=== PATIENT | male | born 1975 | race Caucasian/White ===

== ENCOUNTER 2016-09-15 18:02 | Emergency (ER) | payer OTHER ==
--- NOTE | 2016-09-15 18:57 | EDM.PDOC ---
ED HPI GENERAL MEDICAL PROBLEM - General Chief Complaint: Lower Extremity Injury/Pain Stated Complaint: SWOLLEN R ANKLE Time Seen by Provider: 09/15/16 18:11 Source of Information: Reports: Patient, RN Notes Reviewed - History of Present Illness INITIAL COMMENTS - FREE TEXT/NARRATIVE: 40-year-old male injured right ankle at work about an hour ago. He states he suffered an inversion injury. He felt a "pop". There is swelling of the outer aspect of his ankle and he does have pain with motion at the ankle and with weightbearing. States he has had prior injuries to the ankle. No other pain or injury from this incident Right Ankle Pain Score (Numeric/FACES): 2 - Related Data Allergies Allergy/AdvReac Type Severity Reaction Status Date / Time No Known Allergies Allergy Verified 09/15/16 18:12 Home Meds: Home Meds . [No Known Home Meds] 09/15/16 [History] Past Medical History - Past Health History Medical/Surgical History: Denies Medical/Surgical History Social & Family History - Tobacco Use Smoking Status *Q: Current Every Day Smoker Years of Tobacco use: 15 Packs/Tins Daily: 1 - Caffeine Use Caffeine Use: Reports: None - Recreational Drug Use Recreational Drug Use: No Review of Systems - Review of Systems Review Of Systems: See Below Constitutional: Reports: No Symptoms Mouth/Throat: Reports: No Symptoms Respiratory: Denies: Shortness of Breath Cardiovascular: Denies: Chest Pain GI/Abdominal: Denies: Abdominal Pain Musculoskeletal: Reports: Joint Pain (Right ankle) Skin: Reports: No Symptoms Neurological: Denies: Numbness, Tingling ED EXAM, GENERAL - Physical Exam Exam: See Below General Appearance: Alert, No Apparent Distress Head: Atraumatic Neck: Supple Respiratory/Chest: No Respiratory Distress Extremities: Joint Swelling (Lateral aspect of right ankle, non-tender medially , moderate tenderness lateral ankle, joint is stable, no visible deformity, foot and upper leg are both nontender) Course - Vital Signs Last Recorded V/S: Last Vital Signs Temp 98.3 F 09/15/16 18:08 Pulse 78 09/15/16 19:04 Resp 18 09/15/16 19:04 BP 119/87 09/15/16 19:04 Pulse Ox 98 09/15/16 19:04 - Orders/Labs/Meds Orders: Active Orders 24 hr Category Date Time Status Ankle Min 3V Rt [CR] Stat Exams 09/15/16 18:15 Taken Durable Medical Equipment for Discharge [DME for Oth 09/15/16 18:55 Ordered Discharge] [COMM] Stat - Re-Assessments/Exams Free Text/Narrative Re-Assessment/Exam: 09/15/16 19:09. X-rays of ankle show no fracture Departure - Departure Time of Disposition: 18:53 Disposition: Home, Self-Care 01 Condition: fair Clinical Impression: Ankle sprain Qualifiers: Encounter type: initial encounter Involved ligament of ankle: unspecified ligament Laterality: left Qualified Code(s): S93.402A - Sprain of unspecified ligament of left ankle, initial encounter - Discharge Information Instructions: Ankle Sprain, [id number] Referrals: PCP,None [Primary Care Provider] - Forms: ED Department Discharge Additional Instructions: Lico wrap left foot and ankle is much as possible, ice packs and elevation for swelling, Tylenol or ibuprofen as needed for discomfort, rest and elevate foot and ankle is much as possible, increase activity as tolerated, you are released back to work with no specific restrictions, followup clinic if not much better within 5-7 days as expected - My Orders Last 24 Hours: My Active Orders 09/15/16 18:15 Ankle Min 3V Rt [CR] Stat 09/15/16 18:55 Durable Medical Equipment for Discharge [DME for Discharge] [COMM] Stat - Assessment/Plan Last 24 Hours: My Active Orders 09/15/16 18:15 Ankle Min 3V Rt [CR] Stat 09/15/16 18:55 Durable Medical Equipment for Discharge [DME for Discharge] [COMM] Stat
[2016-09-15 19:08] VITALS: BP 119/87
--- NOTE | 2016-09-16 06:39 | CR ---
Right ankle: Four views of the right ankle were obtained. Unattached bony density seen off the inferior fibula compatible with old injury. Ankle mortise is symmetric. No acute fracture or other bony abnormality is seen. Soft tissue swelling is present. Impression: 1. Soft tissue swelling. 2. Unattached bony density compatible with old injury off the distal fibula. 3. No acute bony abnormality is seen. Diagnostic code #3
== END 2016-09-15 19:04 | disposition home or self-care (01) ==
LOC: JD.ED 18:02
DX: S93.401A Sprain of unspecified ligament of right ankle, initial encounter (principal); F17.210 Nicotine dependence, cigarettes, uncomplicated; X50.1XXA Overexertion from prolonged static or awkward postures, initial encounter; Y92.69 Other specified industrial and construction area as the place of occurrence of the external cause; Y99.0 Civilian activity done for income or pay
CPT/HCPCS: 73610-26-RT; 73610-RT; 99282; 99283